=== PATIENT | male | born 1960 | race Caucasian/White ===

== ENCOUNTER 2018-02-23 01:32 | Emergency (ER) | payer BC ==
[~2018-02-23] VITALS: Ht 180.3 cm; Wt 94.9 kg
[2018-02-23 02:56] LABS: HEMATOCRIT 40.5 % (38.0-50.0); HEMOGLOBIN 13.8 G/DL (12.5-16.6); MCH 29.7 PG (29.0-34.0); MCHC 34.1 G/DL (30.0-36.0); MCV 87.3 FL (86-99); PLATELET COUNT 240 K/uL (156-360); RBC DIS.WIDTH-CV 13.3 % (11.8-14.6); RBC DIS.WIDTH-SD 42.3 % (39-53); RED BLOOD COUNT 4.64 M/uL (4.00-5.50); WHITE BLOOD COUNT 6.2 K/uL (4.1-10.2)
[2018-02-23 03:12] LABS: ALBUMIN 4.2 g/dL (3.2-4.8); CHLORIDE 107 mEq/L (99-109); POTASSIUM 3.9 mEq/L (3.7-5.4); SODIUM 137 mEq/L (136-147)
[2018-02-23 03:15] LABS: GLUCOSE 103 mg/dL (70-99)
[2018-02-23 03:17] LABS: TOTAL BILIRUBIN 0.5 mg/dL (0.0-1.0)
[2018-02-23 03:18] LABS: ALKALINE PHOSPHATASE 54 IU/L (3-129)
[2018-02-23 03:19] LABS: GFR ESTIMATE (CALCULATED) > 59 mL/min/ (58.99-99999)
[2018-02-23 03:20] LABS: AST (GOT) 29 IU/L (2-34); UREA NITROGEN (BUN) 21 mg/dL (9-23)
[2018-02-23 03:21] LABS: ALT (GPT) 24 IU/L (3-49)
[2018-02-23 03:47] LABS: APPEARANCE CLEAR ((CLEAR)); BILIRUBIN NEGATIVE; BLOOD NEGATIVE; COLOR YELLOW ((YELLOW)); GLUCOSE (STRIP) NEGATIVE; KETONES 5; LEUKOCYTES NEGATIVE; NITRITE NEGATIVE; PROTEIN (STRIP) NEGATIVE; SPECIFIC GRAVITY 1.028 (1.000-1.030); UCUL ADDED? NO; UROBILINOGEN 0.2 MG/DL (0.2-1.0)
[2018-02-23] MEDS ORDERED: PERCOCET 5/31 TABLET PO (04:09)
[2018-02-23] MEDS ORDERED: VALIUM5 MG PO (04:09)
[2018-02-23] MEDS ORDERED: ULTRAM50 MG PO (04:09)
[2018-02-23 05:42] VITALS: BP 132/85
== END 2018-02-23 05:42 | disposition home or self-care (01) ==
LOC: EME 01:32
PROVIDERS: Emergency Medicine
DX: S30.0XXA Contusion of lower back and pelvis, initial encounter (principal); W17.89XA Other fall from one level to another, initial encounter
CPT/HCPCS: 72132; 74177; 80053; 81003; 85027; 99281; 99285; J2060; J3010; J7030

== ENCOUNTER 2018-02-25 10:34 | Emergency (ER) | payer BC ==
[~2018-02-25] VITALS: Ht 177.8 cm; Wt 94.4 kg
[~2018-02-25 10:34] MED LIST: PERCOCET 5/31 TABLET PO; ULTRAM50 MG PO; VALIUM5 MG PO
[2018-02-25] MEDS ORDERED: FLEXERIL10 MG PO (14:37)
[2018-02-25] MEDS ORDERED: NORCO 5/3251 TABLET PO (14:37)
[2018-02-25] MEDS ORDERED: PREDNISONE20 MG PO (15:09)
[2018-02-25 15:42] VITALS: BP 135/108
== END 2018-02-25 15:44 | disposition home or self-care (01) ==
LOC: EME 10:34
DX: M54.41 Lumbago with sciatica, right side (principal); M51.16 Intervertebral disc disorders with radiculopathy, lumbar region; N40.0 Benign prostatic hyperplasia without lower urinary tract symptoms; M48.00 Spinal stenosis, site unspecified; Z85.9 Personal history of malignant neoplasm, unspecified
CPT/HCPCS: 72148; 99281; 99285; J3010; J7040; J7512